=== PATIENT | male | born 1985 | race Caucasian/White ===

== ENCOUNTER 2020-02-26 11:43 | Emergency (ER) | payer BC ==
[~2020-02-26] VITALS: Ht 193 cm; Wt 104.3 kg
== END 2020-02-26 14:32 | disposition home or self-care (01) ==
LOC: ED 11:43
DX: S29.011A Strain of muscle and tendon of front wall of thorax, initial encounter (principal); X58.XXXA Exposure to other specified factors, initial encounter
CPT/HCPCS: 71101; 99283-25; A9270